=== PATIENT | female | born 1975 | race Caucasian/White ===

== ENCOUNTER 2017-05-20 12:56 | Outpatient (CLI) | payer OTHER | END 2017-05-20 17:17 | disposition home or self-care (01) | LOC: SMA 12:56 | PROVIDERS: ATTEND Family Medicine | DX: N60.01 Solitary cyst of right breast (principal); N60.02 Solitary cyst of left breast; N63.10 Unspecified lump in the right breast, unspecified quadrant; N63.20 Unspecified lump in the left breast, unspecified quadrant | CPT/HCPCS: 76641; G0204 ==

== ENCOUNTER 2019-02-11 09:41 | Outpatient (CLI) | payer BC | END 2019-02-11 20:46 | disposition home or self-care (01) | LOC: SMA 09:41 | PROVIDERS: ATTEND Family Medicine | DX: Z12.31 Encounter for screening mammogram for malignant neoplasm of breast (principal) | CPT/HCPCS: 77067 ==

== ENCOUNTER 2021-02-19 09:55 | Outpatient (CLI) | payer BC | END 2021-02-19 16:00 | disposition home or self-care (01) | LOC: SMA 09:55 | DX: Z12.31 Encounter for screening mammogram for malignant neoplasm of breast (principal) | CPT/HCPCS: 77067 ==